=== PATIENT | female | born 1990 | race Caucasian/White ===

== ENCOUNTER 2016-06-03 12:56 | Inpatient (IN) | payer BC ==
[~2016-06-03] VITALS: Ht 154.9 cm; Wt 82.4 kg
[~2016-06-03 12:56] MED LIST: APRI28 PO; CIPROFLOXACIN / D5W 400 MG IV SCH; FLUO20CA35 PO; OMEP20CA9 OR
--- NOTE | 2016-06-03 13:43 | EMERGENCY ROOM VISIT NOTE ---
History First contact with patient: 13:15 Chief Complaint: ABDOMINAL PAIN Stated Complaint: ABD PAIN, VOMITING Nursing Triage Summary: Patient c/o left upper quadrant pain with nausea vomiting and diarrhea on and off states this has been going on for 2 months and pain and symptoms increase after eating. History of Present Illness The patient is a 26 year old female who presents to the Emergency Room with complaints of abdominal pain over the last 6 months. She has had intermittent RUQ pain, which is worse after food, sharp in quality, 8/10 severity. Over the weekend she noticed it radiated around her back, and was associated with severe vomiting and diarrhea, so she came in to get evaluated. She noticed persistent pain today. She last ate at 11:30 today. She has a family history of gallbladder disease. She denies any chest pain or shortness of breath. Review of Systems See HPI for pertinent positives & negatives. A total of 10 systems reviewed and were otherwise negative. Past Medical/Surgical History Depression Seasonal allergies No SHx Family History Gallbladder rupture in her mother, Cholecystitis in her father Social History Smoking Status: Never Smoker Marital Status: Housing Status: lives with family Occupation Status: employed Current/Historical Medications Scheduled Control Pills ( Control Pills), 1 TAB PO DAILY Cetirizine (Zyrtec), 10 MG PO DAILY Citalopram Hydrobromide (Celexa), 5 MG PO DAILY Omeprazole (Prilosec), 20 MG OR DAILY Allergies Coded Allergies: Cefaclor (Unverified Allergy, UNSURE, 05/26/09) Penicillins (Unverified Allergy, AIRWAY CLOSES, 05/26/09) Physical Exam Vital Signs Date Time Temp Pulse Resp B/P Pulse Ox O2 Delivery O2 Flow Rate FiO2 06/03/16 17:02 89 16 126/78 99 Room Air 06/03/16 15:57 88 16 127/81 99 Room Air 06/03/16 14:32 92 16 139/96 100 Room Air 06/03/16 13:04 37.2 79 20 161/109 94 Room Air Physical Exam GENERAL: Awake, alert, well-appearing, in no acute distress HENT: Normocephalic, atraumatic. Oropharynx unremarkable. EYES: Normal conjunctiva. Sclera non-icteric. NECK: Supple. No nuchal rigidity. FROM. No JVD. RESPIRATORY: Clear to auscultation. CARDIAC: Regular rate, normal rhythm. Extremities warm and well perfused. Pulses equal. ABDOMEN: Soft, non-distended. Tenderness to palpation of RUQ. No rebound or guarding. No masses. RECTAL: Deferred. MUSCULOSKELETAL: Chest examination reveals no tenderness. The back is symmetrical on inspection without obvious abnormality. There is no CVA tenderness to palpation. No joint edema. LOWER EXTREMITIES: Calves are equal size bilaterally and non-tender. No edema. No discoloration. NEURO: Normal sensorium. No sensory or motor deficits noted. SKIN: No rash or jaundice noted. Medical Decision & Procedures ER Provider Diagnostic Interpretation: ABDOMINAL ULTRASOUND, RIGHT UPPER QUADRANT HISTORY: Generalized abdominal pain after eating. COMPARISON: None. FINDINGS: Pancreas: The pancreas demonstrates a normal echotexture. Liver: Unremarkable. Gallbladder: The gallbladder wall is thickened measuring 6 mm. There is trace pericholecystic fluid versus an edematous wall. There is sludge/debris within the gallbladder. There is a 1.3 cm stone within the neck of the gallbladder. CBD: 3 mm. Right kidney: No hydronephrosis. IMPRESSION: Gallbladder wall thickening with a 1.3 cm stone within the neck of the gallbladder. There may be trace pericholecystic fluid versus an edematous gallbladder wall. There is also sludge/debris within the gallbladder. These findings are highly suspicious for acute cholecystitis. Surgical consultation is recommended. Laboratory Results 06/03/16 13:41 Red Blood Count 4.83, Mean Corpuscular Volume 85.1, Mean Corpuscular Hemoglobin 28.4, Mean Corpuscular Hemoglobin Concent 33.3, Mean Platelet Volume 9.5, Neutrophils (%) (Auto) 66.4, Lymphocytes (%) (Auto) 24.9, Monocytes (%) (Auto) 6.1, Eosinophils (%) (Auto) 1.5, Basophils (%) (Auto) 0.8, Neutrophils # (Auto) 7.94, Lymphocytes # (Auto) 2.97, Monocytes # (Auto) 0.73, Eosinophils # (Auto) 0.18, Basophils # (Auto) 0.09 06/03/16 13:41 Test 06/03/16 13:00 06/03/16 13:30 06/03/16 13:41 Urine Color YELLOW Urine Appearance CLEAR (CLEAR) Urine pH 8.5 (4.5-7.5) Urine Specific [place] 1.020 (1.000-1.030) Urine Protein NEG (NEG) Urine Glucose (UA) NEG (NEG) Urine Ketones NEG (NEG) Urine Occult Blood TRACE (NEG) Urine Nitrite NEG (NEG) Urine Bilirubin NEG (NEG) Urine Urobilinogen NEG (NEG) Urine Leukocyte Esterase NEG (NEG) Urine WBC (Auto) 1-5 /hpf (0-5) Urine RBC (Auto) 10-30 /hpf (0-4) Urine Hyaline Casts (Auto) 1-5 /lpf (0-5) Urine Epithelial Cells (Auto) 20-30 /lpf (0-5) Urine Bacteria (Auto) NEG (NEG) White Blood Count 11.94 K/uL (4.8-10.8) Red Blood Count 4.83 M/uL (4.2-5.4) Hemoglobin 13.7 g/dL (12.0-16.0) Hematocrit 41.1 % (37-47) Mean Corpuscular Volume 85.1 fL (80-100) Mean Corpuscular Hemoglobin 28.4 pg (25-34) Mean Corpuscular Hemoglobin Concent 33.3 g/dl (32-36) Platelet Count 368 K/uL (130-400) Mean Platelet Volume 9.5 fL (7.4-10.4) Neutrophils (%) (Auto) 66.4 % Lymphocytes (%) (Auto) 24.9 % Monocytes (%) (Auto) 6.1 % Eosinophils (%) (Auto) 1.5 % Basophils (%) (Auto) 0.8 % Neutrophils # (Auto) 7.94 K/uL (1.4-6.5) Lymphocytes # (Auto) 2.97 K/uL (1.2-3.4) Monocytes # (Auto) 0.73 K/uL (0.11-0.59) Eosinophils # (Auto) 0.18 K/uL (0-0.5) Basophils # (Auto) 0.09 K/uL (0-0.2) RDW Standard Deviation 39.3 fL (36.4-46.3) RDW Coefficient of Variation 12.7 % (11.5-14.5) Immature Granulocyte % (Auto) 0.3 % Immature Granulocyte # (Auto) 0.03 K/uL (0.00-0.02) Anion Gap 8.0 mmol/L (3-11) Est Creatinine Clear Calc Drug Dose 95.8 ml/min Estimated GFR () 108.1 Estimated GFR (Non- 93.2 BUN/Creatinine Ratio 15.0 (10-20) Calcium Level 8.9 mg/dl (8.5-10.1) Total Bilirubin 0.4 mg/dl (0.2-1) Aspartate Amino Transf (AST/SGOT) 13 U/L (15-37) Alanine Aminotransferase (ALT/SGPT) 20 U/L (12-78) Alkaline Phosphatase 108 U/L (45-117) Total Protein 7.7 gm/dl (6.4-8.2) Albumin 3.5 gm/dl (3.4-5.0) Globulin 4.2 gm/dl (2.5-4.0) Albumin/Globulin Ratio 0.8 (0.9-2) Medications Administered Medications (Trade) Dose Ordered Sig/Sonal Route Start Time Stop Time Status Last Admin Dose Admin Lactated Ringer's (Lr 1000ml) 1,000 ml @ 150 mls/hr [id number] IV 06/03/16 17:15 07/03/16 17:14 06/03/16 17:13 150 MLS/HR ED Course 1:30: I evaluated the patient in room A10. A complete history and physical were performed. I ordered a CBC, CMP, Urine test, Urine dipstick, and US of the gallbladder. 1:40: I discussed the case with the Attending, Dr De Oliveira. 3:00: The patient was still waiting for ultrasound to be completed. The US department was called. The patient was also given 4mg IV Morphine and 4mg IV Zofran for pain and nausea. 4:12: The patient was still waiting for ultrasound. The US dept was called again and they were very busy and said her ultrasound would be completed soon. I explained this to the patient and apologized as well. 4:50: The patients ultrasound result came back - she has acute cholecystitis. 5:00: I discussed the case with Dr Au - he will come review the patient. Medical Decision 26 yo F with RUQ pain with associated nausea / vomiting - differential includes cholecystitis, peptic ulcer disease, gastritis, pancreatitis. She had an IV placed and labs drawn. Her US showed acute cholecystitis. This was shared with the patient. Dr Au was consulted and came to evaluate the patient for acute cholecystectomy. She was admitted under the General Surgery service. Impression Primary Impression: Acute cholecystitis Departure Information Referrals Tashi Menjivar M.D. (PCP) Patient Instructions [facility] Resident Tracking Resident Involvement: Resident Care Provided Care Provided: Adult ED
[2016-06-03 13:52] LABS: BASO % 0.8 %; BASO ABS # 0.09 K/uL (0-0.2); COMPLETE YES; EOS % 1.5 %; HEMATOCRIT 41.1 % (37-47); IG% 0.3 %; LYMPH % 24.9 %; LYMPH ABS # 2.97 K/uL (1.2-3.4); MEAN CELL VOLUME 85.1 fL (80-100); MEAN CORPUSCULAR HEMOGLOBIN 28.4 pg (25-34); MEAN CORPUSCULAR HGB CONC 33.3 g/dl (32-36); MEAN PLATELET VOLUME 9.5 fL (7.4-10.4); MONO % 6.1 %; NEUT % 66.4 %; PLATELET COUNT 368 K/uL (130-400); RED BLOOD COUNT 4.83 M/uL (4.2-5.4); WHITE BLOOD COUNT 11.94 K/uL (4.8-10.8)
[2016-06-03 14:01] LABS: URINE APPEARANCE CLEAR (CLEAR); URINE BILIRUBIN NEG (NEG); URINE COLOR YELLOW; URINE EPITHELIAL CELL AUTO 20-30 /lpf (0-5); URINE NITRITE NEG (NEG); URINE PH 8.5 (4.5-7.5); UROBILINOGEN NEG (NEG); ZZUR CULT IF INDIC CLEAN CATCH NO
--- NOTE | 2016-06-03 14:02 | EMERGENCY ROOM VISIT NOTE ---
ED Visit Note First contact with patient: 13:15 Resident Physician Supervision Note: I was present with Dr. Powers during the history and exam. I discussed the case with the resident and agree with the findings and plan as documented in the note. Documented By: Marshal De Oliveira
[2016-06-03 14:08] LABS: MANUAL MICROSCOPIC REQUIRED? NO; REVIEW REQ? NO
[2016-06-03 14:10] LABS: CALCIUM 8.9 mg/dl (8.5-10.1); CREATININE 0.85 mg/dl (0.60-1.20); POTASSIUM 3.6 mmol/L (3.5-5.1)
[2016-06-03 14:12] LABS: ALB/GLOB RATIO 0.8 (0.9-2)
[2016-06-03] MEDS ORDERED: MoRPHine SULFATE 4 MG/ML 1 ML CARP\\VIAL IV STA (14:12)
[2016-06-03] MEDS ORDERED: ONDANSETRON INJ 2 MG/ML 2 ML VIAL IV STA (14:12)
[2016-06-03] MEDS ORDERED: BCPILLS PO (15:38)
[2016-06-03] MEDS ORDERED: CETI10TA84 PO (15:39)
[2016-06-03] MEDS ORDERED: CITA10TA8 PO (15:39)
--- NOTE | 2016-06-03 16:52 | DIAGNOSTIC IMAGING REPORT ---
ABDOMINAL ULTRASOUND, RIGHT UPPER QUADRANT HISTORY: Generalized abdominal pain after eating. COMPARISON: None. FINDINGS: Pancreas: The pancreas demonstrates a normal echotexture. Liver: Unremarkable. Gallbladder: The gallbladder wall is thickened measuring 6 mm. There is trace pericholecystic fluid versus an edematous wall. There is sludge/debris within the gallbladder. There is a 1.3 cm stone within the neck of the gallbladder. CBD: 3 mm. Right kidney: No hydronephrosis. IMPRESSION: Gallbladder wall thickening with a 1.3 cm stone within the neck of the gallbladder. There may be trace pericholecystic fluid versus an edematous gallbladder wall. There is also sludge/debris within the gallbladder. These findings are highly suspicious for acute cholecystitis. Surgical consultation is recommended. Electronically signed by: Tommie Silva M.D. 06/03/2016 4:51 PM Dictated Date/Time: 06/03/2016 4:48 PM
[2016-06-03] MEDS ORDERED: LACTATED RINGER'S 1000ML 1,000 ML IV SCH ×2 (17:15→17:30)
--- NOTE | 2016-06-03 17:29 | History and Physical ---
History & Physical Date Jun 03, 2016. History of Present Illness The patient is a 26 year old female with complaints of abd pain and nausea, vomiting 2 days ago in ER with u/s evidence of stone in the neck of the gb- thickened with pericholecystic fluid all c/w acute cholecystitis Additional History Hepatic Disease: No Endocrine Disorder: No Kidney Disease: No Hypertension: No Heart Disease: No Infectious Diseases: No Allergies Coded Allergies: Cefaclor (Unverified Allergy, UNSURE, 05/26/09) Penicillins (Unverified Allergy, AIRWAY CLOSES, 05/26/09) Home Medications Scheduled Control Pills ( Control Pills), 1 TAB PO DAILY Cetirizine (Zyrtec), 10 MG PO DAILY Citalopram Hydrobromide (Celexa), 5 MG PO DAILY Omeprazole (Prilosec), 20 MG OR DAILY Physical Examination Skin: warm/dry, no rash Eyes: sclerae normal Head: normocephalic Neck: supple Respiratory/Chest: no respiratory distress Cardiovascular: regular rate, rhythm Abdomen / GI: normal bowel sounds (abd tenderness) Extremities: normal inspection Neurologic/Psych: alert Addiitonal Comments: elevated WBC Diagnosis Acute Cholecystitis Plan of Treatment for laparoscopic cholecystectomy, possible open operation adm to hospital, will order atbx
[2016-06-03] MEDS ORDERED: PROMETHAZINE HCL INJ 25 MG in SODIUM CHLORIDE 0.9% 50ML 50 ML IV PRN (17:30)
[2016-06-03] MEDS ORDERED: HYDROmorphone INJ 0.5 MG/0.5 ML SYR IV PRN (17:30)
[2016-06-03] MEDS ORDERED: METRONIDAZOLE / NSS 500 MG in PREMIXED NSS 100 ML IV SCH (17:30)
[2016-06-03] MEDS ORDERED: ONDANSETRON INJ 2 MG/ML 2 ML VIAL IV PRN ×3 (17:30→19:00)
[2016-06-03] MEDS ORDERED: FENTANYL CITRATE INJ 50 MCG/1 ML 2 ML VIAL IV PRN ×2 (18:15→19:00)
[2016-06-03] MEDS ORDERED: ATROPINE SULFATE 0.1 MG/ML 5ML SYR IV PRN ×2 (18:15→19:00)
[2016-06-03] MEDS ORDERED: EpHEDrine SULFATE INJ 50 MG/ML AMP IV PRN ×2 (18:15→19:00)
[2016-06-03] MEDS ORDERED: FENTANYL CITRATE INJ 50 MCG/1 ML 2 ML VIAL ONE ×2 (19:58→20:53)
[2016-06-03] MEDS ORDERED: DEXAMETHASONE SOD INJ 4 MG/ML VIAL ONE (19:58)
[2016-06-03] MEDS ORDERED: LIDOCAINE HCL 2% 2 ML VIAL (20MG/ML) ONE (19:58)
[2016-06-03] MEDS ORDERED: ROCURONIUM BROMIDE 10 MG/ML 5 ML VIAL ONE (19:58)
[2016-06-03] MEDS ORDERED: PROPOFOL IV EMULSION 10 MG/ML 20 ML VIAL IV ONE (19:58)
[2016-06-03] MEDS ORDERED: MIDAZOLAM HCL 1 MG/ML 2ML VIAL ONE (19:58)
[2016-06-03] MEDS ORDERED: ONDANSETRON INJ 2 MG/ML 2 ML VIAL ONE (19:58)
[2016-06-03] MEDS ORDERED: BUPIVACAINE 0.5 % 5 MG/1 ML MPF 30ML VIAL ONE (20:39)
[2016-06-03] MEDS ORDERED: METRONIDAZOLE / NSS 500 MG in PREMIXED NSS 100 ML IV ONE (20:45)
[2016-06-03] MEDS ORDERED: NEOSTIGMINE METHYLSULFATE 5 MG/5 ML SYR ONE (21:19)
[2016-06-03] MEDS ORDERED: GLYCOPYRROLATE INJ 0.2 MG/ML VIAL ONE (21:19)
--- NOTE | 2016-06-03 21:41 | [facility] Post Operative Brief Note ---
Immediate Operative Summary Operative Date Jun 03, 2016. Pre-Operative Diagnosis Acute Cholecystitis Post-Operative Diagnosis Same as pre-operative Procedure(s) Performed Laparoscopic cholecystectomy Surgeon Dr. Alfa Au MD Processing Clerk Surgeon(s) None Estimated Blood Loss 20ml Findings acute inflammation, sludge, stone in neck Specimens A. Gallbladder Anesthesia gen Complication(s) None Disposition Recovery Room / PACU
--- NOTE | 2016-06-03 22:00 | Anesthesiology Progress Note ---
Anesthesia Post Op Note Date & Time Jun 03, 2016 at 22:00 Vital Signs Pain Intensity: 0 Vital Signs Past 12 Hours Date Time Temp Pulse Resp B/P Pulse Ox O2 Delivery O2 Flow Rate FiO2 06/03/16 21:55 89 17 136/79 100 Mask 10 06/03/16 21:47 36.9 99 16 133/82 100 Mask 10 06/03/16 18:11 37.2 101 16 140/83 96 06/03/16 18:09 101 16 140/83 96 Room Air 06/03/16 17:02 89 16 126/78 99 Room Air 06/03/16 15:57 88 16 127/81 99 Room Air 06/03/16 14:32 92 16 139/96 100 Room Air 06/03/16 13:04 37.2 79 20 161/109 94 Room Air Notes Mental Status: alert / awake / arousable, participated in evaluation Pt Amnestic to Procedure: Yes Nausea / Vomiting: adequately controlled Pain: adequately controlled Airway Patency, RR, SpO2: stable & adequate BP & HR: stable & adequate Hydration State: stable & adequate Anesthetic Complications: no major complications apparent
[2016-06-03] MEDS ORDERED: METOCLOPRAMIDE HCL INJ 5 MG/ML 2 ML VIAL ONE (22:04)
[2016-06-03] MEDS ORDERED: NURSING VERBAL MED ORDER ONE (22:05)
[2016-06-03] MEDS ORDERED: METOCLOPRAMIDE HCL INJ 5 MG/ML 2 ML VIAL IV STA (22:26)
[2016-06-03 23:30] VITALS: BP 96/53; PULSE 89; TEMP 36.9; O2SAT 94; O2SAT 96; Ht 154.9 cm; Wt 82.4 kg
[2016-06-03] MEDS: LACTATED RINGER'S 1000ML 1,000 ML IV SCH (23:40)
[2016-06-03] MEDS: HYDROmorphone INJ 1 MG/ML SYR IV PRN (23:40)
[2016-06-03] MEDS: BCP'S~ORDER AWAITING ACTION SCH (23:42)
[2016-06-04] VITALS (11 sets, daily range): BP systolic 100–131; BP diastolic 61–85; PULSE 63–101; TEMP 36.9–37.1; O2SAT 93–100
--- NOTE | 2016-06-04 01:23 | OPERATIVE REPORT ---
DATE OF OPERATION: 06/03/2016 NAME OF OPERATION: Laparoscopic cholecystectomy. PREOPERATIVE DIAGNOSIS: Acute cholecystitis. POSTOPERATIVE DIAGNOSIS: Same. STAFF SURGEON: Dr. Au. ANESTHESIA: General. PROCEDURE IN DETAIL: The patient was brought in the operating room and placed on the operating table in supine position. Pneumatic stockings and orogastric tube were placed. Her abdomen was draped in usual fashion. She has a piercing in the upper part of her umbilicus. Therefore, incision was made in the lower part of the umbilicus using 0.5% plain Marcaine to anesthetize all incisions. Initially, a 5 mm port was placed. Pneumoperitoneum produced and then it was changed to an 11 mm port. Under visualization, three 5 mm ports were placed, 1 cephalad and 2 laterally. Gallbladder was observed. The patient was placed in reverse Trendelenburg position, rotated to the left. Gallbladder was acutely thickened and inflamed, consistent with acute cholecystitis. I aspirated some contents. It was sludge. Dissection was carried out at the laxmi hepatis, identifying the cystic artery and cystic duct. These were clipped and transected and the gallbladder dissected away from the liver bed. There was severe edema in the posterior wall. After appropriate hemostasis and irrigation, the gallbladder was placed in an Endobag, it was then removed through the umbilical site. I did have to enlarge the fascial defect secondary to the size of the gallbladder and stone within the gallbladder. At this point, the umbilical fascia was closed using interrupted 0 PDS suture, subcutaneous tissue reapproximated using 2-0 plain catgut suture, then the skin at the umbilicus closed using 5-0 Prolene suture. The other sites were closed using subcuticular 4-0 Monocryl and Steri-Strips. The patient was transferred to recovery room in stable condition. I attest to the content of the Intraoperative Record and any orders documented therein. Any exceptions are noted below. ABDULKADIR
[2016-06-04] MEDS: HYDROmorphone INJ 1 MG/ML SYR IV PRN ×5 (03:46→20:59)
[2016-06-04 05:23] LABS: HEMATOCRIT 38.3 % (37-47); MEAN CELL VOLUME 83.8 fL (80-100); MEAN CORPUSCULAR HEMOGLOBIN 27.8 pg (25-34); MEAN CORPUSCULAR HGB CONC 33.2 g/dl (32-36); MEAN PLATELET VOLUME 9.2 fL (7.4-10.4); PLATELET COUNT 300 K/uL (130-400); RED BLOOD COUNT 4.57 M/uL (4.2-5.4); WHITE BLOOD COUNT 13.51 K/uL (4.8-10.8)
[2016-06-04 06:15] LABS: ALB/GLOB RATIO 0.8 (0.9-2); ALKALINE PHOSPHATASE 97 U/L (45-117); ALT/SGPT 23 U/L (12-78); AST/SGOT 20 U/L (15-37); BUN/CREATININE RATIO 12.1 (10-20); CALCIUM 8.4 mg/dl (8.5-10.1); CARBON DIOXIDE 27 mmol/L (21-32); CHLORIDE 106 mmol/L (98-107); CREATININE 0.67 mg/dl (0.60-1.20); GLUCOSE 114 mg/dl (70-99); SODIUM 141 mmol/L (136-145)
--- NOTE | 2016-06-04 06:16 | Surgery Progress Note ---
Surgery Progress Note Date of Service Jun 04, 2016. Subjective + pain controlled (IV meds), No nausea, No vomiting alert, vss Objective Vital Signs: Date Time Temp Pulse Resp B/P Pulse Ox O2 Delivery O2 Flow Rate FiO2 06/04/16 03:00 37.1 68 16 113/68 95 Room Air 06/04/16 01:00 36.9 74 18 120/74 95 Room Air 06/04/16 00:02 36.9 82 14 114/74 96 Room Air 06/03/16 23:30 36.9 89 18 96/53 94 Room Air 06/03/16 23:30 Room Air 06/03/16 23:30 96 Room Air 06/03/16 23:30 96 Room Air 06/03/16 22:45 66 20 119/74 95 Room Air 06/03/16 22:30 82 17 126/69 95 Room Air 06/03/16 22:25 36.9 70 13 119/71 96 Room Air 06/03/16 22:15 69 13 112/70 96 Room Air 06/03/16 22:05 83 15 127/78 100 Mask 10 06/03/16 21:55 89 17 136/79 100 Mask 10 06/03/16 21:47 36.9 99 16 133/82 100 Mask 10 06/03/16 18:11 37.2 101 16 140/83 96 06/03/16 18:09 101 16 140/83 96 Room Air 06/03/16 17:02 89 16 126/78 99 Room Air 06/03/16 15:57 88 16 127/81 99 Room Air 06/03/16 14:32 92 16 139/96 100 Room Air 06/03/16 13:04 37.2 79 20 161/109 94 Room Air General Appearance: no apparent distress Respiratory/Chest: no respiratory distress Abdomen: non distended Incision(s): intact Laboratory Results: Results Past 24 Hours Test 06/03/16 13:00 06/03/16 13:30 06/03/16 13:41 06/03/16 19:22 Range/Units Urine Color YELLOW Urine Appearance CLEAR CLEAR Urine pH 8.5 4.5-7.5 Urine Specific [place] 1.020 1.000-1.030 Urine Protein NEG NEG Urine Glucose (UA) NEG NEG Urine Ketones NEG NEG Urine Occult Blood TRACE NEG Urine Nitrite NEG NEG Urine Bilirubin NEG NEG Urine Urobilinogen NEG NEG Urine Leukocyte Esterase NEG NEG Urine WBC (Auto) 1-5 0-5 /hpf Urine RBC (Auto) 10-30 0-4 /hpf Urine Hyaline Casts (Auto) 1-5 0-5 /lpf Urine Epithelial Cells (Auto) 20-30 0-5 /lpf Urine Bacteria (Auto) NEG NEG Urine Test NEG NEG White Blood Count 11.94 4.8-10.8 K/uL Red Blood Count 4.83 4.2-5.4 M/uL Hemoglobin 13.7 12.0-16.0 g/dL Hematocrit 41.1 37-47 % Mean Corpuscular Volume 85.1 80-100 fL Mean Corpuscular Hemoglobin 28.4 25-34 pg Mean Corpuscular Hemoglobin Concent 33.3 32-36 g/dl Platelet Count 368 130-400 K/uL Mean Platelet Volume 9.5 7.4-10.4 fL Neutrophils (%) (Auto) 66.4 % Lymphocytes (%) (Auto) 24.9 % Monocytes (%) (Auto) 6.1 % Eosinophils (%) (Auto) 1.5 % Basophils (%) (Auto) 0.8 % Neutrophils # (Auto) 7.94 1.4-6.5 K/uL Lymphocytes # (Auto) 2.97 1.2-3.4 K/uL Monocytes # (Auto) 0.73 0.11-0.59 K/uL Eosinophils # (Auto) 0.18 0-0.5 K/uL Basophils # (Auto) 0.09 0-0.2 K/uL RDW Standard Deviation 39.3 36.4-46.3 fL RDW Coefficient of Variation 12.7 11.5-14.5 % Immature Granulocyte % (Auto) 0.3 % Immature Granulocyte # (Auto) 0.03 0.00-0.02 K/uL Sodium Level 142 136-145 mmol/L Potassium Level 3.6 3.5-5.1 mmol/L Chloride Level 105 98-107 mmol/L Carbon Dioxide Level 29 21-32 mmol/L Anion Gap 8.0 3-11 mmol/L Blood Urea Nitrogen 13 7-18 mg/dl Creatinine 0.85 0.60-1.20 mg/dl Est Creatinine Clear Calc Drug Dose 95.8 ml/min Estimated GFR () 108.1 Estimated GFR (Non- 93.2 BUN/Creatinine Ratio 15.0 10-20 Random Glucose 86 70-99 mg/dl Calcium Level 8.9 8.5-10.1 mg/dl Total Bilirubin 0.4 0.2-1 mg/dl Aspartate Amino Transf (AST/SGOT) 13 15-37 U/L Alanine Aminotransferase (ALT/SGPT) 20 12-78 U/L Alkaline Phosphatase 108 45-117 U/L Total Protein 7.7 6.4-8.2 gm/dl Albumin 3.5 3.4-5.0 gm/dl Globulin 4.2 2.5-4.0 gm/dl Albumin/Globulin Ratio 0.8 0.9-2 Test 06/04/16 05:16 Range/Units White Blood Count 13.51 4.8-10.8 K/uL Red Blood Count 4.57 4.2-5.4 M/uL Hemoglobin 12.7 12.0-16.0 g/dL Hematocrit 38.3 37-47 % Mean Corpuscular Volume 83.8 80-100 fL Mean Corpuscular Hemoglobin 27.8 25-34 pg Mean Corpuscular Hemoglobin Concent 33.2 32-36 g/dl RDW Standard Deviation 38.3 36.4-46.3 fL RDW Coefficient of Variation 12.6 11.5-14.5 % Platelet Count 300 130-400 K/uL Mean Platelet Volume 9.2 7.4-10.4 fL Assessment & Plan 06/04/16- s/p lap mercedes- acute cholecystitis. Pain controlled with IV meds. cont IV atbx. probable d/c 06/05
[2016-06-04 07:22] LABS: BLOOD UREA NITROGEN 8 mg/dl (7-18); POTASSIUM 4.3 mmol/L (3.5-5.1)
[2016-06-04] MEDS: CIPROFLOXACIN / D5W 400 MG in PREMIXED IN D5W 200 ML IV SCH ×2 (07:45→20:17)
[2016-06-04] MEDS ORDERED: INFLUENZA VIRUS QUAD VACCINE 0.5 ML SYR IM. ONE (08:00)
[2016-06-04] MEDS ORDERED: INFLUENZA ADMINISTRATION CHARGE ONE (08:00)
[2016-06-04] MEDS ORDERED: CITALOPRAM 20 MG TAB PO SCH (09:00)
[2016-06-04] MEDS ORDERED: IV FLUIDS COMPLETED PRN (09:00)
[2016-06-04] MEDS: CETIRIZINE HCL 10 MG TAB PO SCH (09:00)
[2016-06-04] MEDS: PANTOprazole SOD 40 MG TAB PO SCH (09:00)
[2016-06-04] MEDS: BCP'S~ORDER AWAITING ACTION SCH ×3 (09:01→23:47)
--- NOTE | 2016-06-04 10:24 | Anesthesiology Progress Note ---
Anesthesia Post Op Note Date & Time Jun 04, 2016 at 10:23 Vital Signs Pain Intensity: 3.0 Vital Signs Past 12 Hours Date Time Temp Pulse Resp B/P Pulse Ox O2 Delivery O2 Flow Rate FiO2 06/04/16 09:53 83 19 102/63 93 Room Air 06/04/16 08:02 Room Air 06/04/16 07:45 Room Air 06/04/16 07:28 37.0 101 18 112/72 95 Room Air 06/04/16 03:00 37.1 68 16 113/68 95 Room Air 06/04/16 01:00 36.9 74 18 120/74 95 Room Air 06/04/16 00:02 36.9 82 14 114/74 96 Room Air 06/03/16 23:30 36.9 89 18 96/53 94 Room Air 06/03/16 23:30 Room Air 06/03/16 23:30 96 Room Air 06/03/16 23:30 96 Room Air 06/03/16 22:45 66 20 119/74 95 Room Air 06/03/16 22:30 82 17 126/69 95 Room Air 06/03/16 22:25 36.9 70 13 119/71 96 Room Air Notes Mental Status: alert / awake / arousable, participated in evaluation Pt Amnestic to Procedure: Yes Nausea / Vomiting: adequately controlled Pain: adequately controlled Airway Patency, RR, SpO2: stable & adequate BP & HR: stable & adequate Hydration State: stable & adequate Anesthetic Complications: no major complications apparent
[2016-06-04] MEDS: LACTATED RINGER'S 1000ML 1,000 ML IV SCH ×2 (12:16→23:53)
[2016-06-04] MEDS ORDERED: NURSING VERBAL MED ORDER ONE (19:45)
[2016-06-04] MEDS: OXYCODONE/ACETAMINOPHEN 5-325 TAB PO PRN (20:07)
[2016-06-05] MEDS: OXYCODONE/ACETAMINOPHEN 5-325 TAB PO PRN ×2 (04:30→11:21)
--- NOTE | 2016-06-05 06:47 | Discharge Instructions ---
Discharge Instructions Admission Reason for Admission: Acute Cholecystitis Discharge Discharge Diagnosis / Problem: acute cholecystitis Discharge Goals Goal(s): Decrease discomfort, Improve function, Improve disease control Activity Recommendations Activity Limitations: as noted below Lifting Limitations: no more than 10 pounds Exercise/Sports Limitations: until after follow-up appointment May Resume Sexual Activity: when tolerated Shower/Bathe: no limitations (may shower, no bath for 1 week) Driving or Machine Use: resume 3 days after discharge SPECIAL CARE INSTRUCTIONS: * Cover incisions and change daily for comfort/drainage. * leave steri strips in place * May use ibuprofen for pain as tolerated. * Expect some swelling and bruising. Call your doctor if: * Temperature above 101 degrees * Pain not relieved by pain medicine ordered * There is increased drainage or redness from any incision * You have any unanswered questions or concerns [phone]. FOLLOW UP VISIT: If not already scheduled, please call the office for a follow-up visit. for next week- some sutures removed OFFICE PHONE NUMBER: Dr. Au Office . Current Hospital Diet Patient's current hospital diet: Regular Diet Discharge Diet Recommended Diet: Regular Diet Procedures Procedures Performed: Laparoscopic cholecystectomy Pending Studies Studies pending at discharge: no Work Instructions Return To Work: after follow-up (will need 2 weeks off work, possibly 3 weeks) Medical Emergencies . Who to Call and When: Medical Emergencies: If at any time you feel your situation is an emergency, please call 911 immediately. . Non-Emergent Contact Non-Emergency issues call your: Primary Care Provider, Surgeon . "Provider Documentation" section prepared by Alfa Au. VTE Core Measure Inpt VTE Proph given/why not?: SCD's
[2016-06-05] MEDS ORDERED: PROM25TA9 PO (06:49)
[2016-06-05] MEDS ORDERED: HYDR-5688 PO (06:49)
[2016-06-05] MEDS ORDERED: CIPR-255 PO (06:49)
--- NOTE | 2016-06-05 07:16 | DISCHARGE SUMMARY ---
PRINCIPAL DIAGNOSIS: Acute cholecystitis. PROCEDURES: The patient underwent laparoscopic cholecystectomy. HISTORY OF PRESENT ILLNESS: The patient is a 26-year-old female who has been having upper abdominal pain over several months, but now it has worsened over the last several days with evidence on ultrasound of acute cholecystitis. HOSPITAL COURSE: The patient was brought in the hospital on 06/03/2016. She was taken to the operating room on 06/03/2016 where she underwent laparoscopic cholecystectomy, which she tolerated very well. She has progressed well with some mild nausea, but this has resolved and her pain seems relatively well controlled. She is tolerating her oral intake well. I do feel she can be discharged home today to be followed in the surgical clinic next week.
[2016-06-05 07:42] VITALS: BP 134/88; PULSE 80; TEMP 36.9; O2SAT 96
[2016-06-05] MEDS: BCP'S~ORDER AWAITING ACTION SCH (08:38)
[2016-06-05] MEDS: CETIRIZINE HCL 10 MG TAB PO SCH (08:39)
[2016-06-05] MEDS: PANTOprazole SOD 40 MG TAB PO SCH (08:39)
[2016-06-05] MEDS: CIPROFLOXACIN / D5W 400 MG in PREMIXED IN D5W 200 ML IV SCH (08:49)
[2016-06-05] MEDS ORDERED: NURSING VERBAL MED ORDER ONE (09:00)
[2016-06-05] MEDS ORDERED: CIPROFLOXACIN 500 MG TAB PO ONE (09:15)
[2016-06-05 09:51] VITALS: BP 134/88; PULSE 80; TEMP 36.9; O2SAT 96
[2016-06-05] MEDS ORDERED: CITALOPRAM 20 MG TAB PO SCH (21:00)
== END 2016-06-05 11:42 | disposition home or self-care (01) | DRG 419 ==
LOC: ENRESERVTM → ENRESERVDT → C.EDB 12:57 → C.MSW 21:47 → OBSVTOIN 06-04 06:13
PROVIDERS: ADMIT Surgery; ATTEND Surgery
PROC: 0FT44ZZ Resection of Gallbladder, Percutaneous Endoscopic Approach (ICD-10-PCS; principal; 2016-06-04)
DX: K80.00 Calculus of gallbladder with acute cholecystitis without obstruction (principal); K82.8 Other specified diseases of gallbladder; F32.9 Major depressive disorder, single episode, unspecified; J30.2 Other seasonal allergic rhinitis; Z79.899 Other long term (current) drug therapy; Z83.79 Family history of other diseases of the digestive system